=== PATIENT | male | born 1965 | race Two or more races ===

== ENCOUNTER 2020-04-21 10:12 | Emergency (ER) | payer OTHER ==
[~2020-04-21] VITALS: Ht 162.6 cm; Wt 99.8 kg
[2020-04-21] MEDS ORDERED: LOSARTAN-HCTZ1 EAC2 (10:39)
[2020-04-21] MEDS ORDERED: LOPRESSOR25 MG PO (16:32)
== END 2020-04-21 18:42 | disposition home or self-care (01) ==
LOC: ER 10:12 → CPU-OBS 10:46 → ER 10:46
DX: I16.0 Hypertensive urgency (principal); I10 Essential (primary) hypertension; R51.9 Headache, unspecified
CPT/HCPCS: G0378; G0379; 93005; 70450